=== PATIENT | male | born 1990 | race Caucasian/White ===

== ENCOUNTER 2021-01-28 13:26 | Emergency (ER) | payer OTHER, SELFPAY ==
--- NOTE | ~2021-01-28 | US_ITS ---
EXAMINATION: US venous doppler LE RT DATE: 01/28/2021 15:28 INDICATION: Right lower limb pain and swelling TECHNIQUE: Grayscale ultrasound images without and with compression and Doppler ultrasound images of the right lower extremity veins were obtained. COMPARISON: None. FINDINGS: The visualized portions of right common femoral vein, profunda (deep) femoral vein, femoral vein, pop liteal vein, peroneal trunk, posterior tibial veins, peroneal veins, gastrocnemius vein and greater s aphenous vein outflow are patent. IMPRESSION: 1. No deep venous thrombosis in the right lower limb. Reviewed, dictated and finalized at location A.
--- NOTE | ~2021-01-28 | XR_ITS ---
XR knee RT 3V 01/28/2021 14:08 INDICATION: Right knee pain PROCEDURE: 3 views right knee COMPARISON: No prior studies for comparison. FINDINGS: Fracture, dislocation or subluxation is not identified. The soft tissues appear within norm al limits. No foreign bodies are identified. IMPRESSION: 1: NO ACUTE BONE OR JOINT ABNORMALITY IDENTIFIED. Reviewed, dictated and finalized at location B.
[2021-01-28 13:36] VITALS: BP 115/75; PULSE 79; RESP 18; TEMP 36.6; O2SAT 99
--- NOTE | 2021-01-28 15:19 | ED.LOWEXIN ---
HPI - Extremity Injury (Lower) General Chief Complaint: Extremity Injury, Lower Stated Complaint: right leg pain Time Seen by Provider: 01/28/21 14:39 Source: patient Mode of arrival: ambulatory Limitations: no limitations History of Present Illness HPI Narrative: This is a 30 year old male who presents for evaluation right leg pain. 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 He states at this time his right lower leg was swollen and bruised. He was evaluated at [facility] on monday. He states he was evaluated and discharged with pain medication and a knee brace. He has come to get second opinion because they told him he could go back to work today. He still has pain when he walks. He states his knee feels like something is wrong inside. He also reports he still has some swelling to his right lower leg. He denies chest pain, sob, numbness, tingling or leg weakness. Related Data Allergies Allergy/AdvReac Type Severity Reaction Status Date / Time codeine AdvReac Unknown Nausea and Verified 09/04/19 17:53 Vomiting Review of Systems Review of Systems: All systems reviewed & are unremarkable except as noted in HPI and below PMFSH Past Medical History Medical History (Updated 01/28/21 @ 15:41 by Danni Trammell MD) Patient denies medical problems Surgical History Surgical History History of placement of ear tubes History of tonsillectomy and adenoidectomy Family History Family History Father Family history of alcoholism Social History Social History Smoking status: Light tobacco smoker Second hand tobacco smoke exposure: Yes Alcohol intake: current Substance use: former Substance use type: heroin and methamphetamine Gender identity (if verbalized by the patient): Male Exam Const: General: alert Orientation/consciousness: patient oriented x3 Eyes: EOM: EOMs intact bilaterally Resp: Effort & Inspection: normal respiratory effort and no retractions Auscultation: clear to auscultation bilaterally Cardio: Rate: regular rate Rhythm: regular rhythm Heart sounds: no murmurs Skin: Other: small abrasions with right anterior lower leg with some surround ecchymosis, no erythema or signs of infection Neuro: General: patient oriented x3, moves all extremities and CN's II-XI intact bilaterally Extrem: Other: strong pedal pulses. abrasion and ecchymosis to anterior leg, mild calf tenderness Psych: Mental Status: mental status grossly normal Affect: normal affect Course Reevaluation(s) Reevaluation #1: I discussed with patient imaging results. He is able to walk. He likely has suffered a leg contusion hematoma. It appears to be improving. I discussed discharge mangement. Date: 01/28/21 Time: 15:35 Vital Signs Vital signs: Vital Signs Temperature 97.8 F 01/28/21 13:36 Pulse Rate 79 01/28/21 13:36 Respiratory Rate 18 01/28/21 13:36 Blood Pressure 115/75 01/28/21 13:36 Pulse Oximetry 99 01/28/21 13:36 Temperature 97.8 F 01/28/21 13:36 Pulse Rate 78 01/28/21 16:03 Respiratory Rate 18 01/28/21 16:03 Blood Pressure 123/78 01/28/21 16:03 Pulse Oximetry 99 01/28/21 16:03 MDM - Extremity Injury (Lower) Imaging Data Radiologist's impression: ITS Impressions Knee X-Ray 01/28/21 14:17 IMPRESSION: 1: NO ACUTE BONE OR JOINT ABNORMALITY IDENTIFIED. Venous Doppler Study 01/28/21 15:32 IMPRESSION: 1. No deep venous thrombosis in the right lower limb. Discharge Plan Discharge Clinical Impression: Contusion of leg, right Qualifiers: Encounter type: subsequent encounter Qualified Code(s): S80.11XD - Contusion of right lower leg, subsequent encounter Patient Disposition: Home, Self-Care Condit
[2021-01-28 16:03] VITALS: BP 123/78; PULSE 78; RESP 18; O2SAT 99
== END 2021-01-28 16:04 | disposition home or self-care (01) ==
PROVIDERS: Emergency Provider General Practice
DX: S80.11XD Contusion of right lower leg, subsequent encounter (principal); Y93.72 Activity, wrestling; W22.8XXD Striking against or struck by other objects, subsequent encounter
CPT/HCPCS: 73562; 93971; 99284

== ENCOUNTER 2022-12-03 09:53 | Outpatient (CLI) | payer OTHER, SELFPAY ==
[2022-12-03 12:12] LABS: Liquefaction Semen Complete in 30 min. (<30 minutes); Semen Color Opaque (Grey-opaque); Semen Immotility 10 %; Semen Non-Progressive Motility 20 %; Semen Progressive Motility 60 % (>32); Semen Total Motility 80 (>40% (PM+NP)); Semen Viscosity Increased (Not Increa.)
[2022-12-03 12:14] LABS: Semen Morphology Result to Follow; Sperm Count 4.4 Mil/mL (60-150 million/mL)
[2022-12-07 08:46] LABS: Fructose, Semen 185 mg/dL (150-600)
== END 2022-12-03 09:54 | disposition home or self-care (01) ==
LOC: CHSLAB 09:57
PROVIDERS: Visit Provider Family Medicine
DX: N46.9 Male infertility, unspecified (principal)
CPT/HCPCS: 82757; 88160; 89320